=== PATIENT | female | born 1945 | race Caucasian/White ===

== ENCOUNTER → 2024-10-05 | Outpatient (CLI) | payer OTHER, MEDICAID, SELFPAY ==
--- NOTE | 2024-10-05 13:40 | XR_ITS ---
Examination: Bone densitometry Date and time of exam:October 05, 2024 1250 hours INDICATIONS: Hysterectomy age 32 postmenopausal leg fracture Technique: Lumbar spine and hip total bone mineralization values of an calculated. Peak reference and age match control results have been displayed. Findings: Lumbar spine total bone mineralization is0.635 gm/cm2. This is 3.7 standard deviations below peak reference. This is 1.2 standard deviations below age-matched controls. Hip total bone mineralization is 0.808 gm/cm2 This is 1.1 standard deviations below peak reference. This is 0.8 standard deviations above age-matched controls Impression: There is osteoporosis based on lumbar spine measurements. There is osteopenia based on hip measurements
[2024-10-05 14:24] LABS: Alanine Aminotransferase 64 U/L (10-49); Albumin, Serum 4.4 gm/dL (3.4-4.8); Alkaline Phosphatase 105 U/L (46-116); Aspartate Amino Transferase 34 U/L (0-34); Bilirubin,Direct < 0.1 mg/dL (0.0-0.3); Bilirubin,Total 0.3 mg/dL (0.3-1.2); Total Protein 7.2 gm/dL (5.7-8.2)
== END | disposition home or self-care (01) ==
LOC: COPL 12:04
PROVIDERS: PCP Family Medicine; Referring Provider Family Medicine; Visit Provider Radiology Diagnostic Radiology
DX: M81.0 Age-related osteoporosis without current pathological fracture (principal); M85.88 Other specified disorders of bone density and structure, other site; R94.5 Abnormal results of liver function studies
CPT/HCPCS: 36415; 77080; 80076

== ENCOUNTER → 2025-01-03 | Outpatient (CLI) | payer OTHER, MEDICAID, SELFPAY ==
[2025-01-03 11:59] LABS: Alanine Aminotransferase 51 U/L (10-49); Albumin, Serum 4.4 gm/dL (3.4-4.8); Alkaline Phosphatase 113 U/L (46-116); Aspartate Amino Transferase 42 U/L (0-34); Bilirubin,Direct 0.1 mg/dL (0.0-0.3); Bilirubin,Total 0.3 mg/dL (0.3-1.2)
== END | disposition home or self-care (01) ==
LOC: COPL 11:02
PROVIDERS: PCP Family Medicine; Referring Provider Family Medicine; Visit Provider Family Medicine
DX: R94.5 Abnormal results of liver function studies (principal)
CPT/HCPCS: 36415; 80076

== ENCOUNTER → 2025-03-17 | Outpatient (CLI) | payer MEDICARE, MEDICAID, SELFPAY ==
--- NOTE | 2025-03-17 15:09 | XR_ITS ---
Examination: PA lateral chest 2 views Technique: Upright PA lateral chest 2 views Exam date and time: March 17, 2025 1521 hrs. Indications: Coughing towards breath beginning one month ago. Findings: Minor prominence left ventricle No pneumonia or pulmonary edema Moderate osteopenia Impression: No active disease
== END | disposition home or self-care (01) ==
PROVIDERS: PCP Family Medicine; Referring Provider Family Medicine; Visit Provider Family Medicine
DX: R05.9 Cough, unspecified (principal)
CPT/HCPCS: 71046

== ENCOUNTER → 2025-04-05 | Outpatient (CLI) | payer MEDICARE, MEDICAID, SELFPAY ==
[2025-04-05 08:48] LABS: Basophils % (Auto) 1 % (0-2.5); Eosinophils # (Auto) 0.3 Thou/mm3 (0.0-0.5); Eosinophils % (Auto) 4 % (0-10); Hematocrit 39.2 % (36.0-46.0); Hemoglobin 13.5 g/dL (12.0-16.0); Immature Granulocytes % (Auto) 0 % (0-0); Immature Granulocytes Auto 0.02 Thou/mm3 (0.00-0.00); Lymphocytes # (Auto) 2.3 Thou/mm3 (1.0-4.8); Lymphocytes % (Auto) 35 % (10-50); Mean Corpuscular HGB Conc 34.4 g/dl (31.0-37.0); Mean Corpuscular Hemoglobin 30.1 pg (25.0-35.0); Mean Corpuscular Volume 87 fL (80-100); Monocytes # (Auto) 0.6 Thou/mm3 (0.0-0.8); Monocytes % (Auto) 9 % (0-12); Neutrophils # (Auto) 3.4 Thou/mm3 (1.8-7.7); Neutrophils % (Auto) 51 % (37-80); Nucleated Red Blood Cell % 0 /100 WBC (0); Platelet Count 193 Thou/mm3 (140-440); RDW Standard Deviation 39.8 fL (36.4-46.3); Red Blood Count 4.49 Miln/mm3 (4.00-5.20); White Blood Count 6.6 Thou/mm3 (3.6-11.0)
[2025-04-05 09:04] LABS: Alanine Aminotransferase 45 U/L (10-49); Albumin, Serum 4.1 gm/dL (3.4-4.8); Albumin/Globulin Ratio 1.6 (1.2-2.2); Alkaline Phosphatase 87 U/L (46-116); Anion Gap 7 (7-16); Aspartate Amino Transferase 40 U/L (0-34); BUN/Creatinine Ratio 20 Ratio (12-20); Bilirubin,Total 0.8 mg/dL (0.3-1.2); Blood Urea Nitrogen 18 mg/dL (9-23); Calcium 9.1 mg/dL (8.3-10.6); Calcium (Corrected) 9.1 mg/dL (8.5-10.1); Carbon Dioxide 30.7 mMol/L (20.0-31.0); Cardiac Risk Estimate 3.7 RATIO (3.7-5.6); Chloride 105 mMol/L (98-107); Cholesterol 159 mg/dL (132-200); Creatinine (Component) 0.9 mg/dL (0.6-1.3); Globulin 2.6 gm/dL (2.3-3.5); Glucose 124 mg/dL (74-106); HDL Cholesterol 43 mg/dL (40-60); LDL Cholesterol,Calculated 73 mg/dL (0-130); Osmolality,Calculated 287 (275-295); Potassium 4.4 mMol/L (3.4-5.1); Sodium 143 mMol/L (136-145); Thyroid Stimulating Hormone 2.73 uIU/mL (0.55-4.78); Total Protein 6.7 gm/dL (5.7-8.2); Triglycerides 213 mg/dL (30-150); eGFR > 60 See Note
== END | disposition home or self-care (01) ==
LOC: COPL 07:39
PROVIDERS: PCP Family Medicine; Referring Provider Family Medicine; Visit Provider Family Medicine
DX: I10 Essential (primary) hypertension (principal)
CPT/HCPCS: 36415; 80053; 80061; 84443; 85025

== ENCOUNTER → 2025-04-14 | Outpatient (CLI) | payer MEDICARE, MEDICAID, SELFPAY ==
--- NOTE | 2025-04-14 | XR_ITS ---
Examination: Shoulder,right, 3 views Technique: Shoulder AP internal rotation, AP external rotation, Y view shoulder, 3 views Exam date and time :April 14, 2025 1208 hours INDICATIONS: Right shoulder pain and burning sensation 3 weeks FINDINGS: Prominent osteopenia Moderate narrowing glenohumeral joint No shoulder fracture or dislocation IMPRESSION: Moderate narrowing glenohumeral joint
[2025-04-14 13:30] LABS: Glucose Estimated Average 114 mg/dL (80-131); Hemoglobin A1C 5.6 % Hgb (4.8-6.0)
== END | disposition home or self-care (01) ==
PROVIDERS: PCP Family Medicine; Referring Provider Family Medicine; Visit Provider Family Medicine
DX: M25.811 Other specified joint disorders, right shoulder (principal); R73.01 Impaired fasting glucose
CPT/HCPCS: 36415; 73030; 83036

== ENCOUNTER → 2025-05-03 | Outpatient (CLI) | payer MEDICARE, MEDICAID, SELFPAY ==
--- NOTE | 2025-05-03 10:20 | XR_ITS ---
Examination: AP lateral soft tissue neck 2 views Technique one AP lateral soft tissue neck 2 views Date and time: May 03, 2025 1106 hours INDICATIONS: Neck pain radiating to the right shoulder beginning 2 months ago FINDINGS: Advanced degenerative disc disease C5-C6 No cervical fracture Intact odontoid Epiglottis is not thickened No opaque foreign body IMPRESSION: Advanced degenerative disc disease C5-C6
== END | disposition home or self-care (01) ==
PROVIDERS: PCP Family Medicine; Referring Provider Family Medicine; Visit Provider Family Medicine
DX: M50.322 Other cervical disc degeneration at C5-C6 level (principal)
CPT/HCPCS: 70360

== ENCOUNTER → 2025-08-15 | Outpatient (CLI) | payer MEDICARE, MEDICAID, SELFPAY ==
--- NOTE | 2025-08-15 10:30 | XR_ITS ---
Examination: Screening digital mammography, bilateral Computer aided detection 3-D breast Tomosynthesis, bilateral Date and time of exam: August 15, 2025 1012 hours, compared to mammograms dating to July 18, 2023 Indication: Screening Technique: Nonmagnified MLO, CC views of the breasts to been obtained, reconstructed from 3-D Tomosynthesis images. R2 computer aided detection program utilized for evaluation of suspicious masses and/or abnormal calcifications. 3-D Tomosynthesis images obtained. Findings: The breasts are heterogeneously dense, which may obscure small masses 7 mm nodule indistinct margins inner upper right breast anterior depth 22 mm oval mass lobular margins upper outer left breast Impression: BI-RADS Category 0: Incomplete: Need additional imaging evaluation Recommend follow-up spot tomographic views of 7 mm nodule inner upper right breast and 22 mm nodule upper outer left breast as well as bilateral breast sonography to complete the workup
== END | disposition home or self-care (01) ==
LOC: CDIM 09:51
PROVIDERS: Referring Provider Family Medicine; Visit Provider Family Medicine
DX: Z12.31 Encounter for screening mammogram for malignant neoplasm of breast (principal); N63.21 Unspecified lump in the left breast, upper outer quadrant; N63.12 Unspecified lump in the right breast, upper inner quadrant
CPT/HCPCS: 77063; 77067

== ENCOUNTER → 2025-09-08 | Outpatient (CLI) | payer MEDICARE, MEDICAID, SELFPAY ==
--- NOTE | 2025-09-08 | XR_ITS ---
Examination: Diagnostic digital mammography, unilateral, right Computer aided detection 3-D breast Tomosynthesis, unilateral Date and time of exam: 09/08/2025, 3:57 p.m. Comparisons: June 2023 27 July 2025 Indications: Further evaluation of abnormality seen on screening exam. Technique: Nonmagnified MLO, CC views of the right breast have been obtained, reconstructed from 3-D Tomosynthesis images. R2 computer aided detection program utilized for evaluation of suspicious masses and/or abnormal calcifications. 3-D Tomosynthesis images obtained. Technologist: Findings: The breasts are heterogeneously dense, which may obscure small masses. Right upper inner quadrant focal asymmetry persists on spot compression views and appears benign. Otherwise no evidence of abnormal masses or suspicious calcifications. Impression: Benign findings right breast as above. BI-RADS category 2: Benign findings Recommend 1 year follow-up mammogram Please note patient was also recommended for diagnostic left mammogram as per 08/15/2025 screening mammogram report. Recommend immediate diagnostic mammographic evaluation of the left breast.
--- NOTE | 2025-09-08 15:00 | XR_ITS ---
Examination: Breast ultrasound complete, bilateral Date and time of exam: September 08, 2025, 1530 hours INDICATIONS: Mammogram 08/15/2025 7 mm nodule inner upper right breast 22 mm nodule upper outer left breast Technique: Real-time grayscale ultrasonographic imaging bilateral breasts, including all 4 quadrants as well as nipple retroareolar and axillary regions. Findings: Sonographic images right breast 12:00 cyst 5 x 5 mm 11:00 intramammary lymph node 7 x 7 mm Sonographic images left breast No cystic or solid mass IMPRESSION: BI-RADS Category 2: Benign findings
== END | disposition home or self-care (01) ==
LOC: CDIM 14:40
PROVIDERS: PCP Family Medicine; Referring Provider Family Medicine; Visit Provider Family Medicine
DX: R92.321 Mammographic fibroglandular density, right breast (principal)
CPT/HCPCS: 76641; 77061; 77065; G0279

== ENCOUNTER → 2025-09-23 | Outpatient (CLI) | payer MEDICARE, MEDICAID, SELFPAY ==
--- NOTE | 2025-09-23 09:15 | XR_ITS ---
Examination: Diagnostic digital mammography, unilateral, left Computer aided detection 3-D breast Tomosynthesis, unilateral Date and time of exam: September 23, 2025, 0912 hours INDICATIONS: Mammogram 08/06/2024 circumscribed nodule 7 mm upper outer right breast, strong family history of breast cancer Technique: Nonmagnified MLO, CC views of the left breast have been obtained, reconstructed from 3-D Tomosynthesis images. R2 computer aided detection program utilized for evaluation of suspicious masses and/or abnormal calcifications. 3-D Tomosynthesis images obtained. Findings: The breast is heterogeneously dense, which may obscure small masses Stable calcifications outer upper left breast No definite interval suspicious masses 8 mm focal asymmetry outer left breast on the cc view Impression: BI-RADS category 3: Probably benign findings Recommend 1 additional 6-month left mammogram follow-up
== END | disposition home or self-care (01) ==
LOC: CDIM 08:51
PROVIDERS: Referring Provider Family Medicine; Visit Provider Family Medicine
DX: R92.331 Mammographic heterogeneous density, right breast (principal); R92.1 Mammographic calcification found on diagnostic imaging of breast
CPT/HCPCS: 77061; 77065; G0279